=== PATIENT | female | born 1970 | race Caucasian/White ===

== ENCOUNTER 2018-11-10 16:07 | Emergency (ER) | payer MEDICAID, SELFPAY ==
[~2018-11-10] VITALS: Ht 160 cm; Wt 66.0 kg
[2018-11-10 16:19] VITALS: BP 129/86
[2018-11-10] MEDS ORDERED: KETOROLAC 30 MG/1 ML ONE (16:47)
[2018-11-10] MEDS ORDERED: ONDANSETRON ODT 4 MG ONE (16:47)
[2018-11-10] MEDS ORDERED: CYCLOBENZAPRINE 10 MG TABLET ONE (16:47)
--- NOTE | 2018-11-10 16:58 | NUR ---
MEDS GIVEN PER ERP ORDER. AWAITING RAD READ.
[2018-11-10] MEDS ORDERED: CYCLOBENZAPRINE 10 MG TABLET PO ONE (17:00)
[2018-11-10] MEDS ORDERED: KETOROLAC 30 MG/1 ML IM ONE (17:00)
[2018-11-10] MEDS ORDERED: ONDANSETRON ODT 4 MG PO ONE (17:00)
== END 2018-11-10 17:39 | disposition home or self-care (01) ==
LOC: ED 17:38
DX: M54.42 Lumbago with sciatica, left side (principal)
CPT/HCPCS: 72110; 96372; 99283; J1885; Q0162

== ENCOUNTER 2019-03-12 15:42 | Emergency (ER) | payer MEDICAID ==
[~2019-03-12] VITALS: Ht 160 cm; Wt 67.6 kg
[2019-03-12 15:46] VITALS: BP 125/83
== END 2019-03-12 17:22 | disposition home or self-care (01) ==
LOC: ED 17:15
DX: S42.115A Nondisplaced fracture of body of scapula, left shoulder, initial encounter for closed fracture (principal); F17.200 Nicotine dependence, unspecified, uncomplicated; X58.XXXA Exposure to other specified factors, initial encounter; Y93.89 Activity, other specified; Y92.410 Unspecified street and highway as the place of occurrence of the external cause; Y99.8 Other external cause status
CPT/HCPCS: 99283